=== PATIENT | male | born 1985 | race Caucasian/White ===

== ENCOUNTER → 2017-10-10 | Outpatient (CLI) | payer OTHER ==
--- NOTE | ~2017-10-10 | SLE ---
[facility] [address] [place] [address] POLYSOMNOGRAPHY STUDY Name: TRUNG MARROQUIN Room #: REG [facility] M.Mary.#: [id number] Admission: 10/10/17 Attend Phys: Raysa Gray DNP Discharge: Date of : 81 Report #: [id number] THIS REPORT FOR: //name// CC: Raysa Gray HISTORY: A 32-year-old, height 6 feet 1 inch, weight 370 pounds, loud snoring, witnessed apnea. Usually goes to bed at 11:00 p.m., gets out of bed at 6:00 a.m., does not feel refreshed. Positive snoring and daytime somnolence. [place] sleepiness scale is 6. COMMENTS: Baseline portion: Total sleep time 170 minutes. Sleep efficiency 92%. Central apnea 1, obstructive apnea 6, hypopnea 72. Apnea-hypopnea index 28 events per sleep hour. Non-REM AHI 26, REM AHI 67. All sleep was in the supine position. Periodic limb movement with arousal index of 1 event per sleep hour. 65% of recording time in snoring. Low oxygen saturation 88%. CPAP TITRATION: Titrated at 5, 6, 7 and 8 cm water pressure. At 8 cm water pressure, the patient was seen for 118 minutes, which 20 minutes was in REM sleep. 4 central apneas, 3 hypopneas, apnea-hypopnea index 3.6 events per sleep hour. Low oxygen saturation 87%. No significant arrhythmia noted. IMPRESSION: 1. Obstructive sleep, apnea/hypopnea, G47.33. 2. Periodic limb movement with arousal index of 1 event per sleep hour. 3. CPAP improves the patient's apnea-hypopnea index, snoring and desaturation. The patient was seen in supine REM sleep. 4. No significant arrhythmias noted. SUGGESTIONS: 1. In addition to specific therapy, the patient should be cautioned regarding driving or operating dangerous machinery unless fully alert. 2. The patient should be cautioned regarding the use of respiratory depressants. 3. Oral appliance or appropriate surgery may be considered with appropriate followup. 4. The usual sleep apnea suggestions recommended. 5. An auto titrating CPAP between 5 and 10 cm water pressure is initially recommended. During our study, a ResMed Mirage FX wide mask was used with heated humidity. 6. If signs and symptoms not improved with therapy, further evaluation recommended. [facility] [address] [place] [address] POLYSOMNOGRAPHY STUDY Name: TRUNG MARROQUIN Room #: REG LEIG[facility] Vick#: [id number] Admission: 10/10/17 Attend Phys: Raysa Gray DNP Discharge: Date of : 81 Report #: [id number] Please do not hesitate to contact me if I may be of further assistance. <ELECTRONICALLY SIGNED> By: Clem Berman MD 10/12/17 [id number] Clem Berman MD /nt
== END ==
LOC: SLEEPLAB 10:08
DX: G47.33 Obstructive sleep apnea (adult) (pediatric) (principal)